=== PATIENT | male | born 1980 | race Two or more races ===

== ENCOUNTER 2019-08-01 22:01 | Emergency (ER) | payer OTHER ==
[~2019-08-01] VITALS: Ht 177.8 cm; Wt 115.0 kg
--- NOTE | 2019-08-01 22:07 | NUR ---
THIS IS A 38 YO M W/ C/O SYNCOPAL EPISODE AT HOME. PT REPORTS SITTING AT THE DINNER TABLE WHEN HE BECAME DIAPHORETIC AND DIZZY. EMS REPORTS PT LOST CONCIOUSNESS X10 SECONDS AND WAS CONFUSED X3 MINUTES POST SYNCOPAL EPISODE. PT REPORTS COUGH, SORE THROATX3 DAYS AND THAT HE MAY OF BEEN EXPOSED TO POSITIVE COVID PTS AT WORK. DENIES FEVERS/CHILLS. PT VS WDL. RESP EVEN AND UNLABORED, NADN. IN ROOM FOR EVAL. AWAITING ORDERS.
--- NOTE | 2019-08-01 22:12 | NUR ---
EMS REPORTS GIVING 4MG ZOFRAN, 325 ASPIRIN. PIV PLACED TIRE LAYER. EMS REPORTS PTS HR WENT FROM THE 80'S DOWN TO 40'S MOOMENTARILY WHILE IN ROUTE, PT REPORTED FEELING DIZZY AT THAT TIME. HR WENT BACK TO 80'S IN TRANSIT.
--- NOTE | 2019-08-01 22:32 | NUR ---
1ST CONTACT C PT. STATES SYNCOPE AFTER DINNER. DENIES HITTING HIS HEAD. STATES COUGH X 3 DAYS, DENIES FEVER, TRAVEL. +POSSIBLE EXPOSURE, WORKS AT [employer]. LUNGS CTA. DENIES DYSPNEA C DEEP BREATH. PHLEB & CXR AT BS. DENIES ANY NEEDS. CALL LIGHT INREACH.
[2019-08-01 22:44] LABS: BASOPHILS # (AUTO) 0.03 x10^3/uL (0-0.1); BASOPHILS % (AUTO) 0 % (0-1); EOSINOPHILS # (AUTO) 0.08 x10^3/uL (0-0.4); EOSINOPHILS % (AUTO) 1 % (1-7); LYMPHOCYTES # (AUTO) 2.64 x10^3/uL (1-3.4); LYMPHOCYTES % (AUTO) 33 % (22-44); MD NO; MEAN CORPUSCULAR HEMOGLOBIN 32.2 pg (27.5-34.5); MEAN CORPUSCULAR HGB CONC 33.8 g/dL (33.2-36.2); MEAN CORPUSCULAR VOLUME 95.2 fL (81-97); MEAN PLATELET VOLUME 7.5 fL (7.4-10.4); MONOCYTES # (AUTO) 0.63 x10^3/uL (0.2-0.8); MONOCYTES % (AUTO) 8 % (2-9); NEUTROPHILS # (AUTO) 4.72 x10^3/uL (1.8-6.8); NEUTROPHILS % (AUTO) 58 % (42-75); PLATELET COUNT 325 x10^3/uL (130-400); RED BLOOD COUNT 4.85 x10^6/uL (4.38-5.82); RED CELL DISTRIBUTION WIDTH 12.6 % (9.4-14.8)
[2019-08-01 22:45] LABS: ALBUMIN 4.1 g/dL (3.4-5.0); ANION GAP 7 mmol/L (5-15); CHLORIDE 101 mmol/L (98-107)
--- NOTE | 2019-08-01 23:02 | NUR ---
COVID SAMPLE OBTAINED & SENT.
--- NOTE | 2019-08-01 23:13 | NUR ---
IVF INFUSING WELL. AWARE OF PLAN TO DC HOME POST.
[2019-08-01] MEDS ORDERED: SODIUM CHLORIDE 0.9% 1,000ML IVBOLUS ONE (23:30)
[2019-08-02 00:39] VITALS: BP 108/64
== END 2019-08-02 00:43 | disposition home or self-care (01) ==
LOC: ED 22:43
DX: J06.9 Acute upper respiratory infection, unspecified (principal); Z20.828 Contact with and (suspected) exposure to other viral communicable diseases; R55 Syncope and collapse; E86.0 Dehydration; I10 Essential (primary) hypertension; R94.31 Abnormal electrocardiogram [ECG] [EKG]
CPT/HCPCS: 36415; 71045; 80048; 82040; 85025; 93005; 96360; 99285; J7030; U0001